=== PATIENT | male | born 1990 | race Hispanic/Latino ===

== ENCOUNTER 2023-04-06 10:36 | Emergency (ER) | payer OTHER ==
[2023-04-06] MEDS ORDERED: Diphtheria,Pertussis(Acell),Tetanus Vaccine 0.5 ML Syringe IM ONE (10:53)
[2023-04-06] MEDS ORDERED: Lidocaine 1% with EPINEPHrine 1:100,000 20 ML MDV INJECT ONE (11:13)
[2023-04-06] MEDS ORDERED: Acetaminophen/oxyCODONE 325-5 MG Tab PO ONE (11:15)
[2023-04-06] MEDS ORDERED: Lidocaine 1% with EPINEPHrine 1:200,000 30 ML SDV INJECT STA (11:27)
[2023-04-06] MEDS ORDERED: Lidocaine 1% with EPINEPHrine 1:200,000 30 ML SDV ONE (11:29)
== END 2023-04-06 12:41 | disposition home or self-care (01) ==
LOC: MW.ED 10:36
DX: S71.112A Laceration without foreign body, left thigh, initial encounter (principal); Z23 Encounter for immunization; W31.2XXA Contact with powered woodworking and forming machines, initial encounter
CPT/HCPCS: 12004; 73560; 90471; 90715; 99283; A9270